=== PATIENT | male | born 1990 | race Caucasian/White ===

== ENCOUNTER 2019-01-02 19:40 | Emergency (ER) | payer SELFPAY ==
[2019-01-02] MEDS: LORAZEPAM 1 MG TAB PO (20:59)
[2019-01-02] MEDS: SOD CHLORIDE 0.9% 1,000 ML IV (22:29)
[2019-01-02 22:35] LABS: ADD MAN DIFF? NO
[2019-01-02 22:37] LABS: WHITE BLOOD COUNT 9.3 10^3/ul (4.8-10.8)
[2019-01-02 22:37] LABS: BASOPHIL # 0.1 10^3/ul (0.0-0.1); BASOPHILS % 0.9 % (0.0-2.0); EOSINOPHILS % 0.2 % (0.0-7.0); HEMATOCRIT 42.8 % (42.0-52.0); HEMOGLOBIN 15.4 g/dl (14.0-18.0); LYMPHOCYTES # 1.9 10^3/ul (0.8-2.9); LYMPHOCYTES % 20.2 % (15.0-51.0); MEAN CORPUSCULAR VOLUME 86.1 fl (82.0-101.0); MEAN PLATELET VOLUME 9.8 fl (7.4-10.4); MONOCYTE # 0.7 10^3/ul (0.3-0.9); MONOCYTES % 7.1 % (0.0-11.0); NEUTROPHIL # 6.7 10^3/ul (1.6-7.5); NEUTROPHILS % 71.3 % (39.0-77.0); PLATELET COUNT 278 10^3/UL (140-415); RED BLOOD COUNT 4.97 10^6/ul (4.70-6.10); RED CELL DISTRIBUTION WIDTH 12.2 % (11.5-14.5)
[2019-01-02 22:54] LABS: ALANINE AMINOTRANSFERASE 82 IU/L (13-69); ALBUMIN 5.1 g/dl (3.3-4.9); ALBUMIN/GLOBULIN RATIO 1.41; ALKALINE PHOSPHATASE 72 IU/L (42-121); ANION GAP 13 (5-13); ASPARTATE AMINO TRANSFERASE 46 IU/L (15-46); BLOOD UREA NITROGEN 10 mg/dl (7-20); CALCIUM 10.2 mg/dl (8.4-10.2); CARBON DIOXIDE 24 mmol/L (21-31); CHLORIDE 101 mmol/L (97-110); CREATININE 1.02 mg/dl (0.61-1.24); Estimated GFR > 60 mL/min (>60); GLUCOSE 118 mg/dl (70-220); POTASSIUM 4.1 mmol/L (3.5-5.1); SODIUM 138 mmol/L (135-144); TOTAL PROTEIN 8.7 g/dl (6.1-8.1)
[2019-01-02 23:02] LABS: D-DIMER 284.89 ng/ml (<460)
== END 2019-01-02 23:40 | disposition home or self-care (01) ==
LOC: FTE 19:40
DX: J02.9 Acute pharyngitis, unspecified (principal)
CPT/HCPCS: 36415; 71045; 80053; 84443; 85025; 85378; 93005; 96360; 99284-25